=== PATIENT | female | born 1975 | race Caucasian/White ===

== ENCOUNTER 2019-06-07 16:22 | Outpatient (CLI) | payer OTHER ==
--- NOTE | 2019-06-07 16:46 | RAD ---
RADIOGRAPH CHEST 2 VIEW: DATE: 06/07/2019 TIME: 5:32 PM HISTORY: 43-year-old male with cough COMPARISON: 11/02/2013 FINDINGS: New finding of small infiltrate at posterior base of right lower lobe. No cardiomegaly. No pneumothor ax. No pleural effusion. IMPRESSION: Evidence for right lower lobe pneumonia.
== END 2019-06-07 16:23 | disposition home or self-care (01) ==
LOC: RAD-FRANK 16:22
PROVIDERS: ATTEND Nurse Practitioner Family
DX: R05 Cough (principal); J18.1 Lobar pneumonia, unspecified organism
CPT/HCPCS: 71046

== ENCOUNTER 2019-06-24 11:26 | Emergency (ER) | payer OTHER ==
[2019-06-24] MEDS ORDERED: HYDROcodone/Acetaminophen 5/325 mg Tablet ONE (12:49)
--- NOTE | 2019-06-24 14:48 | RAD ---
RIGHT RIBS GREATER THAN EQUAL TO 2 VIEWS WITH A PA CHEST XRAY: HISTORY: Pain. COMPARISON: None. FINDINGS: Heart size is upper limits of normal. No pneumothorax. No effusion. No focal consolidation. No displaced right-sided rib fracture. IMPRESSION: 1. No acute displaced rib fracture. 2. Mild cardiomegaly. POS: HOME
== END 2019-06-24 14:30 | disposition home or self-care (01) ==
LOC: ERS 11:26
DX: S29.011A Strain of muscle and tendon of front wall of thorax, initial encounter (principal); F41.9 Anxiety disorder, unspecified; E78.5 Hyperlipidemia, unspecified; E78.00 Pure hypercholesterolemia, unspecified; E03.9 Hypothyroidism, unspecified; Z79.899 Other long term (current) drug therapy; X50.1XXA Overexertion from prolonged static or awkward postures, initial encounter

== ENCOUNTER 2021-08-12 21:41 | Emergency (ER) | payer OTHER ==
[~2021-08-12 21:41] MED LIST: Iopamidol-370 76% 500 ML 1 ML ONE
[2021-08-12 23:19] LABS: #Basophils 0.1 thou/uL (0.0-0.2); #Eosinphils 0.3 thou/uL (0.0-0.7); #Neutrophils 15.1 thou/uL (1.40-6.50); %Basophils 0.4 % (0.0-1.0); %Eosinophils 1.9 % (0.0-10.0); %Lymphocytes 5.6 % (21.0-51.0); %Monocytes 5.6 % (0.0-10.0); %Neutrophils 86.4 % (42.0-75.0); Hemoglobin 16.4 g/dL (12.0-16.0); Mean Corpuscular HGB CONC 32.1 g/dL (32.0-36.0); Mean Corpuscular Hemoglobin 29.8 pg (27.0-31.0); Mean Corpuscular Volume 92.8 fL (78.0-98.0); Mean Platelet Volume 9.3 fL (7.4-10.4); Platelet Count 276 thou/uL (130-400); RBC Distribution Width 15.5 % (11.5-14.5); Red Blood Cell (RBC) Count 5.49 mill/uL (4.20-5.40); White Blood Cell (WBC) Count 17.5 thou/uL (4.8-10.8)
[2021-08-12 23:27] LABS: MONO NEGATIVE CONTROL ZONE White (Negative) (White); MONO POSITIVE CONTROL Pink Line (Positive) (PINK/RED); Mononucleosis NEGATIVE (NEGATIVE)
[2021-08-12 23:35] LABS: ALT (SGPT) 76 U/L (8-55); AST (SGOT) 30 U/L (5-34); Albumin 3.8 g/dL (3.5-5.0); Alkaline Phosphatase 86 U/L (40-110); Anion Gap 19 mmol/L (10-20); BUN (Urea Nitrogen) 23 mg/dL (7.0-18.7); Bilirubin, Total 0.6 mg/dL (0.2-1.2); Calc. Creatinine Clearance 0 mL/min (70-130); Calcium 9.7 mg/dL (7.8-10.44); Carbon Dioxide 24 mmol/L (22-29); Chloride 99 mmol/L (98-107); Globulin 3.8 g/dL (2.4-3.5); Glucose 154 mg/dL (70-105); Protein, Total 7.6 g/dL (6.0-8.3); Sodium 137 mmol/L (136-145)
== END 2021-08-13 02:10 | disposition home or self-care (01) ==
LOC: ERS 21:41
DX: K11.20 Sialoadenitis, unspecified (principal); E03.9 Hypothyroidism, unspecified; E78.5 Hyperlipidemia, unspecified; Z79.899 Other long term (current) drug therapy
CPT/HCPCS: 36415; 70491; 80053; 85025; 86308; Q9967